=== PATIENT | male | born 1960 | race African-American/Black ===

== ENCOUNTER → 2018-12-11 | Outpatient (CLI) | payer MEDICAID ==
--- NOTE | 2018-12-11 10:54 | RADIOLOGY REPORT (SQ) ---
EXAM DESCRIPTION: U/S ABDOMEN LIMITED W/O DOP COMPLETED DATE/TIME: 12/11/2018 10:17 am REASON FOR STUDY: ALCOHOLIC CIRRHOSIS OF LIVER WITHOUT ASCITES K70.30 ALCOHOLIC CIRRHOSIS OF LIVER WITHOUT ASCITES COMPARISON: None. TECHNIQUE: Dynamic and static grayscale images acquired of the abdomen and recorded on PACS. Additio nal selected color Doppler and spectral images recorded. LIMITATIONS: Limited evaluation secondary to bowel gas. FINDINGS: PANCREAS: Not visualized. LIVER: Nodular contour with heterogeneous echotexture. No intrahepatic ductal dilation. Liver measu res 15.7 cm. LIVER VASCULATURE: Normal directional flow of the main portal vein and hepatic veins. GALLBLADDER: Surgically absent. ULTRASOUND-DETECTED STEWART'S SIGN: Not documented. INTRAHEPATIC DUCTS AND COMMON DUCT: CBD measures up to 10 mm. No intrahepatic ductal dilation. INFERIOR VENA CAVA: Normal flow. AORTA: Partially evaluated. Mild dilation of the proximal aorta measuring up to 2.6 cm. RIGHT KIDNEY: Normal size measuring 10.3 cm. Normal echogenicity. No solid or suspicious masses. No hydronephrosis. No calcifications. PERITONEAL AND RIGHT PLEURAL SPACE: No ascites or effusions. OTHER: No other significant findings. IMPRESSION: 1. Nodular hepatic contour and heterogeneous echotexture suggestive of intrinsic liver disease. No ascites. 2. Status post cholecystectomy. 3. Proximal aorta measures up to 2.6 cm. Remaining aorta not visualized. Follow-up as below. COMMENT: AAA Size: Follow-up Recommendation 2.6-2.9 cm Every 5 years* *Based upon the Society for Vascular Surgery Guidelines: J Vasc Surg. 2009 Oct;50(4 Suppl):S2-49 *For aortas of maximum diameter of 2.6-2.9 cm meeting the criteria for AAA (?1.5 x proximal normal se gment) TECHNICAL DOCUMENTATION: JOB ID: [id number] [employer]- All Rights Reserved Reading location - IP/workstation name: [email or web address]
== END ==
LOC: RAD 09:00
PROVIDERS: ATTEND Internal Medicine Gastroenterology
DX: K70.30 Alcoholic cirrhosis of liver without ascites (principal)
CPT/HCPCS: 76705

== ENCOUNTER 2019-01-06 10:16 | Emergency (ER) | payer MEDICAID ==
[2019-01-06] MEDS ORDERED: OXYCODONE-ACETAMINOPHEN 5-325 MG TABLET PO ONE (10:49)
--- NOTE | 2019-01-06 10:55 | ER Document Report ---
ED Medical Screen (RME) - General Chief Complaint: Hip Pain Stated Complaint: LEFT HIP PAIN Time Seen by Provider: 01/06/19 10:46 Primary Care Provider: ANDREA JACKSON MD [Primary Care Provider] - Follow up as needed Information source: Patient Notes: Patient is a 58-year-old male complaining of left hip pain over the last 4 days. Patient reports he is currently being worked up for bone cancer in his shoulder. Patient denies any fevers, nausea, vomiting or chills. Denies any trauma to the area. Exam: Tenderness to palpation of the lateral left hip. I have greeted and performed a rapid initial assessment of this patient. A comprehensive ED assessment and evaluation of the patient, analysis of test results and completion of the medical decision making process will be conducted by additional ED providers. I have specifically instructed the patient or family members with the patient to immediately return to any nursing staff should anything change in the patient's condition or with their chief complaint. This medical record was dictated with voice recognizing software. There may be grammatical, syntax errors that are unintended. TRAVEL OUTSIDE OF THE [place] IN LAST 30 DAYS: No - Related Data Allergies/Adverse Reactions: No Known Allergies Allergy (Unverified 01/06/19 10:28) Past Medical History - Social History Chew tobacco use (# tins/day): No Frequency of alcohol use: Occasional Drug Abuse: None Past Surgical History: Reports: Hx Cholecystectomy Doctor's Discharge - Discharge Referrals: ANDREA JACKSON MD [Primary Care Provider] - Follow up as needed
--- NOTE | 2019-01-06 12:11 | RADIOLOGY REPORT (SQ) ---
EXAM DESCRIPTION: SHOULDER RIGHT 2 OR MORE VIEWS COMPLETED DATE/TIME: 01/06/2019 11:54 am REASON FOR STUDY: Pain posterior upper right shoulder Hx CA liver COMPARISON: None. NUMBER OF VIEWS: Three views. TECHNIQUE: Internal rotation, external rotation, and Y view images acquired of the right shoulder. LIMITATIONS: None. FINDINGS: MINERALIZATION: Osteopenia. BONES: Diffuse cortical disruption and cortical destruction involving the entire glenoid extending to the coracoid. Moth-eaten appearance of the acromion. Generalize moth-eaten appearance of the humer us a scar is visualized. JOINTS: No dislocation. VISUALIZED LUNGS AND RIBS: No pneumothorax. No rib fracture. SOFT TISSUES: No radiopaque foreign body. OTHER: No other significant finding. IMPRESSION: Extensive bony destruction involving the glenoid and coracoid with diffuse moth-eaten ap pearance of the visualized humerus. Malignancy most likely, particularly myeloma. Osteomyelitis in the differential, but highly unlikely. TECHNICAL DOCUMENTATION: JOB ID: [id number] [employer]- All Rights Reserved Reading location - IP/workstation name: [email or web address]
--- NOTE | 2019-01-06 12:12 | RADIOLOGY REPORT (SQ) ---
EXAM DESCRIPTION: HIP LEFT AP/LATERAL COMPLETED DATE/TIME: 01/06/2019 11:54 am REASON FOR STUDY: left hip pain COMPARISON: None. NUMBER OF VIEWS: Two views. TECHNIQUE: AP pelvis and additional frog-leg view of the left hip. LIMITATIONS: None. FINDINGS: MINERALIZATION: Normal. LEFT HIP: No fracture or dislocation. No worrisome bone lesions. Contour deformity typical of femor oacetabular impingement. . No joint space narrowing. RIGHT HIP: No fracture or dislocation. No worrisome bone lesions. Contour deformity typical of femo roacetabular impingement. PUBIS AND ISCHIUM: No fracture. PELVIS: No fracture. SACRUM: No fracture or dislocation. No worrisome bone lesions. LOWER LUMBAR SPINE: No fracture or dislocation. No worrisome bone lesions. No significant disc disea se. SOFT TISSUES: No findings. OTHER: No other significant finding. IMPRESSION: Bilateral femoroacetabular impingement. No acute findings. TECHNICAL DOCUMENTATION: JOB ID: [id number] [employer]- All Rights Reserved Reading location - IP/workstation name: [email or web address]
[2019-01-06] MEDS ORDERED: HYDROMORPHONE HCL 2 MG TABLET PO ONE (12:36)
[2019-01-06 12:54] LABS: ABSOLUTE EOSINOPHILS # (AUTO) 0.2 10^3/uL (0.0-0.6); ABSOLUTE LYMPHOCYTES (AUTO) 1.1 10^3/uL (0.5-4.7); ABSOLUTE MONOCYTES (AUTO) 0.5 10^3/uL (0.1-1.4); ABSOLUTE NEUT (AUTO) 1.8 10^3/uL (1.7-8.2); BASOPHILS % (AUTO) 0.2 % (0-2); EOSINOPHILS % (AUTO) 4.4 % (0-6); HEMATOCRIT 36.7 % (37.9-51.0); HEMOGLOBIN 12.4 g/dL (13.5-17.0); LYMPHOCYTES % (AUTO) 31.1 % (13-45); MEAN CORPUSCULAR HEMOGLOBIN 32.7 pg (27.0-33.4); MEAN CORPUSCULAR HGB CONC 33.9 g/dL (32.0-36.0); MEAN CORPUSCULAR VOLUME 96 fl (80-97); MONOCYTES % (AUTO) 14.3 % (3-13); RED CELL DISTRIBUTION WIDTH 16.6 % (11.5-14.0); TOTAL CELLS COUNTED % (AUTO) 100 %; WHITE BLOOD COUNT 3.6 10^3/uL (4.0-10.5)
[2019-01-06 13:06] LABS: ALBUMIN 3.5 g/dL (3.5-5.0); ALKALINE PHOSPHATASE 200 U/L (38-126); ANION GAP 8 (5-19); ASPARTATE AMINO TRANSFERASE 98 U/L (17-59); BILIRUBIN,DIRECT 1.7 mg/dL (0.0-0.4); BLOOD UREA NITROGEN 10 mg/dL (7-20); CALCIUM 9.8 mg/dL (8.4-10.2); CARBON DIOXIDE 28 mmol/L (22-30); CHLORIDE 104 mmol/L (98-107); GLUCOSE 113 mg/dL (75-110); POTASSIUM 4.1 mmol/L (3.6-5.0); TOTAL PROTEIN 8.6 g/dL (6.3-8.2)
[2019-01-06 13:36] LABS: PLATELET COUNT 93 10^3/uL (150-450)
--- NOTE | 2019-01-06 14:25 | ER Document Report ---
ED Hip Pain/Injury - General Chief Complaint: Hip Pain Stated Complaint: LEFT HIP PAIN Time Seen by Provider: 01/06/19 10:46 Primary Care Provider: ANDREA JACKSON MD [ACTIVE STAFF] - Follow up as needed Notes: Patient is complaining of pain in the right shoulder and right entire side since this past spring. In June, patient was in [place] and was diagnosed with having hepatocellular cancer. He is been having pain in that right shoulder ever since. Has been told that he has liver mass, as well. He had a biopsy of his scapula on 04 January at [facility]. Patient having severe pain and no one has prescribed him pain medications. He is not receiving any chemotherapy at this point. He has not had any radiation therapy either. PMH: Cirrhosis, hepatitis C, cholecystectomy. History of pneumonia as well. TRAVEL OUTSIDE OF THE [place] IN LAST 30 DAYS: No - Related Data Allergies/Adverse Reactions: No Known Allergies Allergy (Unverified 01/06/19 10:28) Past Medical History - General Information source: Patient - Social History Smoking Status: Current Every Day Smoker Chew tobacco use (# tins/day): No Frequency of alcohol use: Occasional Drug Abuse: None Family History: Reviewed & Not Pertinent Patient has suicidal ideation: No Patient has homicidal ideation: No Malignancy Medical History: Reports Hx Bone Cancer - Right shoulder GI Medical History: Reports: Hx Cirrhosis, Hx Hepatitis - Hepatitis C Past Surgical History: Reports: Hx Cholecystectomy Review of Systems - Review of Systems Notes: CONSTITUTIONAL : Denies fever. CARDIOVASCULAR: Denies chest pain. RESPIRATORY: Denies cough, chest congestion, or shortness of breath. GASTROINTESTINAL: Denies abdominal pain or nausea, vomiting, or diarrhea. GENITOURINARY: Denies difficulty or painful urinating, urinary frequency, blood in urine. Extremities: pain in right shoulder, see HPI Physical Exam - Vital signs Vitals: Temp Pulse BP Pulse Ox 97.8 F 95 141/95 H 98 01/06/19 14:35 01/06/19 14:35 01/06/19 14:35 01/06/19 14:35 Interpretation: Normal Notes: PHYSICAL EXAMINATION: GENERAL: Well-appearing, no acute distress. HEAD: Atraumatic, normocephalic. NECK: Normal range of motion, supple. LUNGS: Breath sounds clear and equal bilaterally. HEART: Regular rate and rhythm without murmurs heard. ABDOMEN: Soft, nontender. No guarding or rebound or masses felt. Extremities: Patient tender in the left buttock and hip region, but otherwise no specific significant findings there. Patient's right shoulder is very tender to touch in the upper half of the scapula. There are 1 or 2 apparent puncture wound site where the biopsies were obtained. Patient is exquisitely tender to touch and that shoulder area. Course - Vital Signs Vital signs: Temp Pulse Resp BP Pulse Ox 97.8 F 95 141/95 H 98 01/06/19 14:35 01/06/19 14:35 01/06/19 14:35 01/06/19 14:35 - Laboratory Result Diagrams: 01/06/19 12:40 01/06/19 12:40 Laboratory results interpreted by me: 01/06/19 01/06/19 12:40 12:40 WBC 3.6 L RBC 3.80 L Hgb 12.4 L Hct 36.7 L RDW 16.6 H Plt Count 93 L Shannon % (Auto) 14.3 H Glucose 113 H Total Bilirubin 3.0 H Direct Bilirubin 1.7 H AST 98 H Alkaline Phosphatase 200 H Total Protein 8.6 H - Diagnostic Test Radiology reviewed: Image reviewed, Reports reviewed - X-rays of the patient's left hip show nothing acute. X-ray of the right shoulder reveals destructive lesion leaving significant bone damage in the right scapula and glenoid fossa. 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 It is rather large and rather extensive and quite painful. You are advised to follow-up with Jose at [facility]. I spoke with him and he will coordinate all your follow-up care from this point. I am prescribing you a strong pain medication, but use it sparingly, only when really needed. At other times take plain Tylenol or Motrin. Oral Narcotic Medication You have been given a prescription for pain control. This medication is a narcotic. It's best taken with food, as nausea can result if taken on an empty stomach. Don't operate machinery or drive within six hours of taking this medication. Do not combine this medicine with alcohol, or with any medication which can cause sedation (such as cold tablets or sleeping pills) unless you get permission from the physician. Narcotics tend to cause constipation. If possible, drink plenty of fluids and eat a diet high in fiber and fruits. Oral Narcotic Medication You have been given a prescription for pain control. This medication is a narcotic. It's best taken with food, as nausea can result if taken on an empty stomach. Don't operate machinery or drive within six hours of taking this medication. Do not combine this medicine with alcohol, or with any medication which can cause sedation (such as cold tablets or sleeping pills) unless you get permission from the physician. Narcotics tend to cause constipation. If possible, drink plenty of fluids and eat a diet high in fiber and fruits. FOLLOW-UP CARE: If you have been referred to a physician for follow-up care, call the physicians office for an appointment as you were instructed or within the next two days. If you experience worsening or a significant change in your symptoms, notify the physician immediately or return to the Emergency Department at any time for re-evaluation. See Jose at [facility] in the coming week. Call him for an appointment. He is aware of everything that we were doing today. Prescriptions: Hydromorphone HCl [Dilaudid 2 mg Tablet] 2 mg PO Q4HP PRN #20 tablet PRN Reason: Zolpidem Tartrate [Ambien 5 mg Tablet] 5 mg PO HSP PRN #10 tablet PRN Reason: Referrals: ANDREA JACKSON MD [ACTIVE STAFF] - Follow up as needed
[2019-01-06 14:37] VITALS: BP 141/95
== END 2019-01-06 14:36 | disposition home or self-care (01) ==
LOC: ER 10:16
DX: M25.552 Pain in left hip (principal); M25.511 Pain in right shoulder; G89.3 Neoplasm related pain (acute) (chronic); C22.0 Liver cell carcinoma; F17.200 Nicotine dependence, unspecified, uncomplicated; Z86.19 Personal history of other infectious and parasitic diseases; Z90.49 Acquired absence of other specified parts of digestive tract
CPT/HCPCS: 36415; 83690; 85025; 80053; 73502; 73030; J3490; 99284

== ENCOUNTER 2019-01-10 09:14 | Emergency (ER) | payer MEDICAID ==
[2019-01-10 10:26] LABS: ABSOLUTE EOSINOPHILS # (AUTO) 0.1 10^3/uL (0.0-0.6); ABSOLUTE LYMPHOCYTES (AUTO) 0.5 10^3/uL (0.5-4.7); ABSOLUTE MONOCYTES (AUTO) 0.4 10^3/uL (0.1-1.4); ABSOLUTE NEUT (AUTO) 2.4 10^3/uL (1.7-8.2); BASOPHILS % (AUTO) 0.9 % (0-2); EOSINOPHILS % (AUTO) 3.8 % (0-6); HEMATOCRIT 36.9 % (37.9-51.0); HEMOGLOBIN 12.7 g/dL (13.5-17.0); LYMPHOCYTES % (AUTO) 13.9 % (13-45); MEAN CORPUSCULAR HEMOGLOBIN 33.3 pg (27.0-33.4); MEAN CORPUSCULAR HGB CONC 34.6 g/dL (32.0-36.0); MEAN CORPUSCULAR VOLUME 96 fl (80-97); MONOCYTES % (AUTO) 12.3 % (3-13); RED BLOOD COUNT 3.82 10^6/uL (4.35-5.55); RED CELL DISTRIBUTION WIDTH 15.8 % (11.5-14.0); SEGMENTED NEUTROPHILS % (AUTO) 69.1 % (42-78); TOTAL CELLS COUNTED % (AUTO) 100 %; WHITE BLOOD COUNT 3.5 10^3/uL (4.0-10.5)
[2019-01-10 10:45] LABS: ALBUMIN 3.7 g/dL (3.5-5.0); ALKALINE PHOSPHATASE 138 U/L (38-126); ANION GAP 10 (5-19); ASPARTATE AMINO TRANSFERASE 147 U/L (17-59); BILIRUBIN,DIRECT 2.4 mg/dL (0.0-0.4); BILIRUBIN,TOTAL 4.1 mg/dL (0.2-1.3); BLOOD UREA NITROGEN 10 mg/dL (7-20); CALCIUM 9.7 mg/dL (8.4-10.2); CARBON DIOXIDE 31 mmol/L (22-30); CHLORIDE 94 mmol/L (98-107); GLUCOSE 121 mg/dL (75-110); POTASSIUM 3.7 mmol/L (3.6-5.0); TOTAL PROTEIN 9.1 g/dL (6.3-8.2)
[2019-01-10 10:52] LABS: PLATELET COUNT 103 10^3/uL (150-450)
--- NOTE | 2019-01-10 11:55 | ER Document Report ---
ED Medical Screen (RME) - General Chief Complaint: Pain All Over Stated Complaint: HEADACHE Time Seen by Provider: 01/10/19 11:48 Primary Care Provider: MISBAH LUNA MD [Primary Care Provider] - Follow up as needed Mode of Arrival: Medic Information source: Patient Notes: This 58-year-old male presents emergency department with history of right shoulder pain. Patient has history of cancer. Reports he was seen at [place] on Sunday and reports the medication they have given him for the pain has not helping. I have greeted and performed a rapid initial assessment of this patient. A comprehensive ED assessment and evaluation of the patient, analysis of test results and completion of the medical decision making process will be conducted by additional ED providers. Dictation of this chart was performed using voice recognition software; therefore, there may be some unintended grammatical errors. TRAVEL OUTSIDE OF THE [place] IN LAST 30 DAYS: No - Related Data Allergies/Adverse Reactions: No Known Allergies Allergy (Unverified 01/06/19 10:28) Past Medical History Malignancy Medical History: Reports Hx Bone Cancer - Right shoulder GI Medical History: Reports: Hx Cirrhosis, Hx Hepatitis - Hepatitis C Infectious Medical History: Reports: Hx Hepatitis - Hepatitis C Past Surgical History: Reports: Hx Cholecystectomy Physical Exam - Vital signs Vitals: Temp Pulse Resp BP Pulse Ox 97.9 F 92 16 126/79 H 98 01/10/19 09:19 01/10/19 09:19 01/10/19 09:19 01/10/19 09:19 01/10/19 09:19 Course - Vital Signs Vital signs: Temp Pulse Resp BP Pulse Ox 97.9 F 92 18 126/79 H 98 01/10/19 09:19 01/10/19 09:19 01/10/19 11:08 01/10/19 09:19 01/10/19 09:19 - Laboratory Result Diagrams: 01/10/19 10:11 01/10/19 10:11 Laboratory results interpreted by me: 01/10/19 01/10/19 10:11 10:11 WBC 3.5 L RBC 3.82 L Hgb 12.7 L Hct 36.9 L RDW 15.8 H Plt Count 103 L Sodium 134.5 L Chloride 94 L Carbon Dioxide 31 H Glucose 121 H Total Bilirubin 4.1 H Direct Bilirubin 2.4 H AST 147 H Alkaline Phosphatase 138 H Total Protein 9.1 H Doctor's Discharge - Discharge Referrals: MISBAH LUNA MD [Primary Care Provider] - Follow up as needed
--- NOTE | 2019-01-10 12:12 | ER Document Report ---
ED General - General Chief Complaint: Pain All Over Stated Complaint: HEADACHE Time Seen by Provider: 01/10/19 11:48 Primary Care Provider: MISBAH LUNA MD [Primary Care Provider] - Follow up as needed Mode of Arrival: Medic TRAVEL OUTSIDE OF THE [place] IN LAST 30 DAYS: No - HPI Notes: Patient is a 58-year-old male with a history of ?hepatocellular cancer and noted cancer to his right scapular/humerus region concerning for myeloma who presents complaining of severe rt side neck pain just behind/near his ear that began last night. He did have a biopsy performed of his scapula 01/04 at [facility]. He is not currently receiving chemo or radiation. Patient states that his sister knows more about his case than he does. I did speak with his sister and they do not currently have an oncologist that they are going to be seeing. They were waiting on the family provider to place a follow-up or referral. Patient states that he is here today because of the pain behind his ear. His other pains are 'eased off' with the dilaudid that he has at home. Patient states that he is able to eat and drink without difficulty otherwise. He is urinating normally and having normal bowel movements. Denies any fever, head injury, changes in vision/speech/mentation/hearing, URI, sore throat, chest pain, palpitations, syncope, cough, shortness of breath, wheeze, dyspnea, abdominal pain, nausea/vomiting/diarrhea, urinary retention, dysuria, hematuria, loss of control of bowel or bladder, numbness/tingling, saddle anesthesia, muscle paralysis, or rash. - Related Data Allergies/Adverse Reactions: No Known Allergies Allergy (Unverified 01/06/19 10:28) Past Medical History - General Information source: Patient - Social History Smoking Status: Current Every Day Smoker Family History: Reviewed & Not Pertinent Patient has suicidal ideation: No Patient has homicidal ideation: No Malignancy Medical History: Reports Hx Bone Cancer - Right shoulder GI Medical History: Reports: Hx Cirrhosis, Hx Hepatitis - Hepatitis C Infectious Medical History: Reports: Hx Hepatitis - Hepatitis C Past Surgical History: Reports: Hx Cholecystectomy Review of Systems - Review of Systems -: Yes All other systems reviewed and negative Physical Exam - Vital signs Vitals: Temp Pulse Resp BP Pulse Ox 97.9 F 92 16 126/79 H 98 01/10/19 09:19 01/10/19 09:19 01/10/19 09:19 01/10/19 09:19 01/10/19 09:19 - Notes Notes: PHYSICAL EXAMINATION: GENERAL: Well-appearing, well-nourished and in no acute distress. A&Ox4. Answers questions appropriately. HEAD: Atraumatic, normocephalic. EYES: Pupils equal round and reactive to light, extraocular movements intact, sclera anicteric, conjunctiva are normal. ENT: EAC clear b/l. TM's intact b/l without erythema, fluid, or perforation. + significant tenderness rt mastoid and inferior ear area. Nares patent and without discharge. oropharynx clear without exudates. No tonsilar hypertrophy or erythema. Moist mucous membranes. No sinus tenderness. NECK: Normal range of motion, supple without lymphadenopathy LUNGS: Breath sounds clear to auscultation bilaterally and equal. No wheezes rales or rhonchi. HEART: Regular rate and rhythm without murmurs, rubs, gallops. Musculoskeletal: FROM to passive/active. Strength 5+/5. aside from Rt shoulder with LROM to active due to pain. N/V intact distal. Extremities: No cyanosis, clubbing, or edema b/l. Peripheral pulses 2+. Capillary refill less than 3 seconds. NEUROLOGICAL: Cranial nerves grossly intact. Normal speech, normal gait. N ormal sensory, motor exams PSYCH: Normal mood, normal affect. SKIN: Warm, Dry, normal turgor, no rashes or lesions noted. Course - Re-evaluation Re-evalutation: 01/10/19 12:28 Reviewed imaging options with radiologist and they would prefer head w/o to further investigate. 01/10/19 13:38 [address] with [address] Bennett who recommends pain control until pathology results are completed and they may f/u with them thereafter if they do not have an oncology group. 01/10/19 13:53 Dr. Johnson was consulted and we will obtain a CT soft tissue neck to further evaluate. 01/10/19 14:51 Dr. Johnson in agreement with dispo/plan: Patient is an afebrile, well-hydrated, 58-year-old male who presents with right- sided superior neck/lower head pain suspect secondary to the suspected cancer to his right scapular area. Vitals are acceptable without significant tachycardia, tachypnea, or hypoxia. PE is otherwise unremarkable. Patient is nontoxic- appearing and is able to tolerate p.o. without difficultly. Patient was given pain medicine here in the emergency department. He does have Dilaudid for home. Labs and imaging otherwise unremarkable. Low suspicion for any other systemic emergent condition at this time. Reviewed with patient that he needs to call his family provider first thing on Sunday for follow-up. If he receives his pathology reports back to call the oncology group provided unless he is going to be dealing with [facility]. Return to the ED with any other worsening/concerning symptoms. Patient is in agreement. - Vital Signs Vital signs: Temp Pulse Resp BP Pulse Ox 97.9 F 92 18 126/79 H 98 01/10/19 09:19 01/10/19 09:19 01/10/19 11:08 01/10/19 09:19 01/10/19 09:19 - Laboratory Result Diagrams: 01/10/19 10:11 01/10/19 10:11 Laboratory results interpreted by me: 01/10/19 01/10/19 10:11 10:11 WBC 3.5 L RBC 3.82 L Hgb 12.7 L Hct 36.9 L RDW 15.8 H Plt Count 103 L Sodium 134.5 L Chloride 94 L Carbon Dioxide 31 H Glucose 121 H Total Bilirubin 4.1 H Direct Bilirubin 2.4 H AST 147 H Alkaline Phosphatase 138 H Total Protein 9.1 H Discharge - Discharge Clinical Impression: Pain of right scapula, Neck pain on right side Condition: Stable Disposition: HOME, SELF-CARE Additional Instructions: Rest, Ice, Compression, Elevation Tylenol/ibuprofen as needed Light stretches daily Strength exercises as able Moist heat and massage may help F/u with your PCP on Sunday for a recheck As soon as your pathology report becomes available, contact the oncology group to schedule a follow-up* Return to the ED with any worsening symptoms and/or development of fever, headache, chest pain, palpitations, syncope, shortness of breath, trouble breathing, abdominal pain, n/v/d, muscle weakness/paralysis, numbness/tingling, swelling, redness, or other worsening symptoms that are concerning to you. Prescriptions: Ibuprofen [Motrin 800 mg Tablet] 800 mg PO Q8H PRN #20 tab PRN Reason: Forms: Elevated Blood Pressure, Smoking Cessation Education Referrals: SHIRLEY BENNETT MD [ACTIVE STAFF] - Follow up in 3-5 days MISBAH LUNA MD [Primary Care Provider] - 01/13/19
[2019-01-10] MEDS ORDERED: HYDROMORPHONE HCL INJ/PF 2 MG/ML AMPULE IV ONE (12:20)
[2019-01-10] MEDS ORDERED: NORMAL SALINE 1000 ML 1,000 ML IV ONE (12:20)
--- NOTE | 2019-01-10 13:25 | RADIOLOGY REPORT (SQ) ---
EXAM DESCRIPTION: CT HEAD WITHOUT COMPLETED DATE/TIME: 01/10/2019 1:14 pm REASON FOR STUDY: CA, severe rt mastoid pain, rt head pain COMPARISON: None. TECHNIQUE: Axial images acquired through the brain without intravenous contrast. Images reviewed wi th bone, brain and subdural windows. Additional sagittal and coronal reconstructions were generated. Images stored on PACS. All CT scanners at this facility use dose modulation, iterative reconstruction, and/or weight based d osing when appropriate to reduce radiation dose to as low as reasonably achievable (ALARA). [facility]: Dose Right [facility]: CareDose [facility]: Dose Right [facility]: Teradose 4D [facility]: Smart Mantex RADIATION DOSE: CT Rad equipment meets quality standard of care and radiation dose reduction techniq ues were employed. CTDIvol: 53.2 mGy. DLP: 991 mGy-cm. mGy. LIMITATIONS: None. FINDINGS: VENTRICLES: Normal size and contour. CEREBRUM: No masses. No hemorrhage. No midline shift. No evidence for acute infarction. Normal gra y/white matter differentiation. No areas of low density in the white matter. CEREBELLUM: No masses. No hemorrhage. No alteration of density. No evidence for acute infarction. EXTRAAXIAL SPACES: No fluid collections. No masses. ORBITS AND GLOBE: No intra- or extraconal masses. Normal contour of globe without masses. CALVARIUM: No fracture. PARANASAL SINUSES: Scans foamy secretions are seen within the right sphenoid compartment. The parana jason sinuses and mastoid air cells are otherwise clear. SOFT TISSUES: No mass or hematoma. OTHER: No other significant finding. IMPRESSION: No evidence mastoiditis. Scant foamy secretions are seen within the right sphenoid comp artment. Normal noncontrast CT appearance of the brain. EVIDENCE OF ACUTE STROKE: NO. COMMENT: Quality ID # [id number]: Final reports with documentation of one or more dose reduction techniques (e.g., Automated exposure control, adjustment of the mA and/or kV according to patient size, use of iterative reconstruction technique) TECHNICAL DOCUMENTATION: JOB ID: [id number] [employer]- All Rights Reserved Reading location - IP/workstation name: [email or web address]
[2019-01-10] MEDS ORDERED: KETOROLAC TROMETHAMINE INJ/PF 30 MG/1 ML SDV IV ONE (13:43)
--- NOTE | 2019-01-10 14:44 | RADIOLOGY REPORT (SQ) ---
EXAM DESCRIPTION: SOFT TISSUE NECK COMPLETED DATE/TIME: 01/10/2019 2:31 pm REASON FOR STUDY: Rt neck pain COMPARISON: None. NUMBER OF VIEWS: Two views. TECHNIQUE: AP and lateral radiographic image of the soft tissues of the neck. LIMITATIONS: None. FINDINGS: EPIGLOTTIS: Normal. Contour normal. Aryepiglottic folds normal. PREVERTEBRAL SOFT TISSUES: Normal. No soft tissue swelling. SUBGLOTTIC AREA: Normal. No narrowing. RETROPHARYNGEAL SPACE: Normal. No soft tissue masses. BONES: Disc degenerative disease at C5-C6 and C6-C7 with disc space narrowing. LUNG APICES: Normal. OTHER: No radiopaque foreign body. No other significant finding. IMPRESSION: Degenerative changes in the lower cervical spine. No other significant findings. TECHNICAL DOCUMENTATION: JOB ID: [id number] [employer]- All Rights Reserved Reading location - IP/workstation name: [email or web address]
[2019-01-10 15:13] VITALS: BP 105/74
== END 2019-01-10 16:00 | disposition home or self-care (01) ==
LOC: ER 09:14
DX: M25.511 Pain in right shoulder (principal); M54.2 Cervicalgia; R51 Headache; F17.200 Nicotine dependence, unspecified, uncomplicated
CPT/HCPCS: 36415; 85025; 80053; 70360; 70450; J1885; J1170; J7030; 96361; 96374; 96375; 99284